=== PATIENT | female | born 1990 | race Caucasian/White ===

== ENCOUNTER 2019-08-22 15:04 | Emergency (ER) | payer OTHER ==
[~2019-08-22] VITALS: Ht 177.8 cm; Wt 72.6 kg
[2019-08-22] MEDS ORDERED: Bactrim Ds Tab1 EACH PO (16:45)
== END 2019-08-22 16:56 | disposition home or self-care (01) ==
LOC: ER 15:04
DX: L02.415 Cutaneous abscess of right lower limb (principal); F17.210 Nicotine dependence, cigarettes, uncomplicated
CPT/HCPCS: 73552; 99283-25; A9270-GY

== ENCOUNTER 2019-10-06 12:20 | Emergency (ER) | payer OTHER ==
[~2019-10-06] VITALS: Ht 180.3 cm; Wt 81.7 kg
[~2019-10-06 12:20] MED LIST: Bactrim Ds Tab1 EACH PO
== END 2019-10-06 15:43 | disposition left against medical advice (07) ==
LOC: ER 12:20
DX: L02.414 Cutaneous abscess of left upper limb (principal); Z53.20 Procedure and treatment not carried out because of patient's decision for unspecified reasons
CPT/HCPCS: 99282

== ENCOUNTER 2020-01-08 17:16 | Emergency (ER) | payer OTHER ==
[~2020-01-08] VITALS: Ht 180.3 cm; Wt 81.7 kg
[2020-01-08] MEDS ORDERED: Keflex500 MG PO (18:30)
[2020-01-08] MEDS ORDERED: Bactrim Ds Tab1 EACH PO (18:30)
== END 2020-01-08 18:53 | disposition home or self-care (01) ==
LOC: ER 17:16
DX: L02.31 Cutaneous abscess of buttock (principal); L02.411 Cutaneous abscess of right axilla; F17.210 Nicotine dependence, cigarettes, uncomplicated; Z86.14 Personal history of Methicillin resistant Staphylococcus aureus infection
CPT/HCPCS: 99283; A9270-GY